=== PATIENT | female | born 1965 ===

== ENCOUNTER 2017-10-13 08:01 | Day surgery (SDC) | payer OTHER ==
[2017-07-23 01:08] VITALS: BMI 32.2
[2017-10-13] MEDS ORDERED: Lactated Ringer's 1,000 ML IV ONE (09:29)
[2017-10-13] MEDS ORDERED: Midazolam 2 MG/2 ML VIAL ONE (09:47)
[2017-10-13] MEDS ORDERED: Propofol 10 mg/ml Inj (20 ML) ONE (09:48)
[2017-10-13] MEDS ORDERED: HYDROmorphone 0.5 mg/0.5 ml ISec IVP PRN (10:29)
--- NOTE | 2017-10-13 10:39 | PCM.SURG1 ---
Surgeon's Initial Post Op Note - Surgeon's Notes Surgeon: Dr. Donaldson Lithographic Proofer: None Type of Anesthesia: General LMA Anesthesia Administered By: Dr. Tobar Pre-Operative Diagnosis: 52 yo with Thickened endometrium, Endometrial polyp , Postmenopausal Bleeding Operative Findings: Av uterus , endometrial polyp Post-Operative Diagnosis: Same as above Operation Performed: Hysteroscopy Myosure D and C Specimen/Specimens Removed: Endometrial polyp, ECC,EMC Estimated Blood Loss: EBL {In ML}: 5 Blood Products Given: N/A Drains Used: No Drains Post-Op Condition: Good Date of Surgery/Procedure: 10/13/17 Time of Surgery/Procedure: 10:39
[2017-10-13 11:48] VITALS: PULSE 79; RESP 16; O2SAT 98
[2017-10-13 12:53] VITALS: BP 114/72; TEMP 97.5
--- NOTE | 2017-10-13 21:35 | OP ---
PROCEDURE DATE: PREOPERATIVE DIAGNOSES: This is a 52-year-old female with postmenopausal bleeding, thickened endometrium and endometrial polyp. POSTOPERATIVE DIAGNOSES: This is a 52-year-old female with postmenopausal bleeding, thickened endometrium and endometrial polyp. PROCEDURE: Hysteroscopy, MyoSure, dilatation and curettage. SURGEON: Eunice Donaldson MD ANESTHESIOLOGIST: Radames Lainez MD TYPE OF ANESTHESIA: General LMA. FINDINGS: Anteverted uterus approximately 8 weeks gestation, noted to have an endometrial polyp. COMPLICATIONS: None. ESTIMATED BLOOD LOSS: Approximately 10 mL. IV FLUIDS: 600 mL. INPUTS AND OUTPUTS: 100 mL. SPECIMEN: EMC, ECC, and polyp. DESCRIPTION OF PROCEDURE: The patient was informed of the risks factors, benefits, and alternatives of the procedure. Risk factors included infection, bleeding, damage to the surrounding organs and tissues, complication from anesthesia and possible . After informed consent was obtained, she was then taken to the operating room, prepped and draped in a normal sterile fashion, placed in a dorsal lithotomy position. A weighted speculum was placed into the vagina. The anterior lip of the cervix was grasped with a single-toothed tenaculum. The uterus was gently sounded to approximately 8 cm. Upon completing uterine dilation, the scope was then placed. A complete surveillance of the uterine cavity was then performed. Under direct visualization, the MyoSure device was then activated and the endometrial polyp versus fibroid was removed and submitted to Pathology. Excellent hemostasis was noted. The MyoSure device was then removed together with the hysteroscope, then a fractional D and C was then performed, EMC, ECC, and submitted to Pathology. Upon completion, the scope was reintroduced making sure there were no areas of perforation, which was demonstrated excellent hemostasis. All instruments were removed from the vagina. Instrument and lap count were correct x2. The patient was then taken to Recovery in stable condition, and instructed to follow up in the office in approximately 2 weeks. Eunice Donaldson MD
== END 2017-10-13 12:55 | disposition home or self-care (01) ==
LOC: C.SDS 08:01
PROVIDERS: ATTEND Obstetrics & Gynecology
DX: N84.0 Polyp of corpus uteri (principal); N95.0 Postmenopausal bleeding
CPT/HCPCS: 58558; 88305; J2250; J2704; J3010; J7120